=== PATIENT | female | born 2000 | race Caucasian/White ===

== ENCOUNTER → 2020-10-12 | Outpatient (CLI) | payer OTHER ==
[2020-10-12 20:15] LABS: BASO % 0.7 % (0.0-1.0); EOS # 0.1 10^3/uL (0.0-0.5); EOS % 1.7 % (0.0-3.0); HEMATOCRIT 38.9 % (36.0-47.0); HEMOGLOBIN 12.7 g/dl (12.0-15.5); LYMPH # 1.9 10^3/uL (1.5-5.0); LYMPH % 32.6 % (24.0-44.0); MEAN CORPUSCULAR HEMOGLOBIN 31.1 pg (27.0-33.0); MEAN CORPUSCULAR HGB CONC 32.6 g/dl (32.0-36.5); MEAN CORPUSCULAR VOLUME 95.3 fl (80.0-96.0); MONO # 0.4 10^3/uL (0.0-0.8); MONO % 6.2 % (0.0-8.0); NEUTROPHILS # 3.5 10^3/uL (1.5-8.5); NEUTROPHILS % 58.6 % (36.0-66.0); PLATELET COUNT, AUTOMATED 227 10^3/uL (150-450); RED BLOOD COUNT 4.08 10^6/uL (4.00-5.40)
== END ==
LOC: M LAB 18:32
DX: D50.8 Other iron deficiency anemias (principal)

== ENCOUNTER → 2020-11-09 | Outpatient (CLI) | payer OTHER ==
--- NOTE | 2020-11-10 16:58 | ECGEPIP ---
[facility] Test Date: 2020-11-09 Pat Name: LYNDA LARIOS Department: Room: - Gender: Female Run Lead: KADY : 2000 Requested By: Dennise Damon Order Number: [id number] Reading MD: Niall Langley Measurements Intervals [place] Rate: 72 P: 78 CT: 154 QRS: 90 QRSD: 92 T: 72 QT: 400 QTc: 438 Interpretive Statements Normal sinus rhythm with sinus arrhythmia Possible Left atrial enlargement Rightward axis RSR' or QR pattern in V1 suggests right ventricular conduction delay No prior ECG available for comparison at the time of interpretation. Electronically Signed on 11-10-2020 16:57:49 EDT by Niall Langley
== END ==
LOC: M EKG 17:24
PROVIDERS: ATTEND Physician Assistant Medical
DX: R00.2 Palpitations (principal)

== ENCOUNTER → 2020-12-26 | Outpatient (CLI) | payer SELFPAY | LOC: M LABSMTC 10:04 | PROVIDERS: ATTEND Pediatrics | DX: Z11.52 Encounter for screening for COVID-19 (principal) ==